=== PATIENT | female | born 1975 | race Caucasian/White ===

== ENCOUNTER → 2018-10-13 14:15 | Outpatient (CLI) | payer OTHER, SELFPAY ==
[2018-10-20 17:56] LABS: HPV Reflexed? NOT INDICATED
== END ==
PROVIDERS: Visit Provider Obstetrics & Gynecology
DX: Z12.4 Encounter for screening for malignant neoplasm of cervix (principal)
CPT/HCPCS: 88175; G0145

== ENCOUNTER → 2018-11-05 15:27 | Outpatient (CLI) | payer OTHER, SELFPAY ==
[2015-12-21 04:12] VITALS: BMI 57.5
--- NOTE | 2018-11-05 15:30 | BI_ITS ---
MAMMOGRAPHY - BILATERAL DIAGNOSTIC REASON FOR EXAM: Female, 43 years old. 3 month history of left breast lump. PERTINENT HISTORY: Sisters with breast cancer. Mother with breast cancer. TECHNIQUE: Digital bilateral breast no (3D mammographic acquisition) in the CC and MLO projections. 2-D mediolateral oblique (MLO) and craniocaudad (CC) views of both breasts were obtained. CAD: Full Field Digital Mammography with Computer Added Detection was performed. COMPARISON: Comparison is made with prior study dated April 09, 2013. FINDINGS: Breast Composition: The breasts are heterogeneously dense, which may obscure small masses. There are no dominant masses or suspicious calcifications. No other significant abnormalities are identified. There has been no significant change since the prior study. BI/DIAG MAMM W/CAD, BILAT IMPRESSION: Stable bilateral diagnostic mammogram. With the patient's history of a palpable abnormality in the left breast, correlation with ultrasound is recommended. ASSESSMENT CATEGORY: BIRADS Category 0: Incomplete. Need additional imaging evaluation. A letter regarding these results will be sent to the patient by the facility within 30 days. Approximately 10% of breast cancers are not detected by mammography. A normal mammogram should not delay biopsy of a clinically suspicious abnormality. Electronically Signed: Tone Rajput, at 8:06 EDT , Service support ,
== END ==
PROVIDERS: Referring Provider Obstetrics & Gynecology; Visit Provider Obstetrics & Gynecology
DX: N63.20 Unspecified lump in the left breast, unspecified quadrant (principal)
CPT/HCPCS: 77062; 77066; G0279

== ENCOUNTER → 2018-11-06 14:41 | Outpatient (CLI) | payer OTHER, SELFPAY ==
--- NOTE | 2018-11-06 14:53 | US_ITS ---
STUDY: ULTRASOUND BREAST - LEFT REASON FOR EXAM: Female, 43 years old. Palpable lump left breast. TECHNIQUE: Axial and longitudinal images of the LEFT breast were performed with a high resolution ultrasound transducer. COMPARISON: Comparison is made with prior mammogram dated November 05, 2018. FINDINGS: LEFT Breast: The upper inner quadrant of the left breast was examined by ultrasound. There is homogeneous fibroglandular tissue. No sonographic abnormality is seen. US/Breast Complete Unilateral IMPRESSION: No sonographic abnormality is seen. ASSESSMENT CATEGORY: BIRADS Category 1: Negative. A letter regarding these results will be sent to the patient by the facility within 30 days. Electronically Signed: Tone Rajput, at 8:28 EDT , Service support ,
== END ==
LOC: OPUS 14:52
PROVIDERS: Referring Provider Obstetrics & Gynecology; Visit Provider Obstetrics & Gynecology
DX: N63.20 Unspecified lump in the left breast, unspecified quadrant (principal)
CPT/HCPCS: 76641

== ENCOUNTER → 2020-04-19 09:30 | Outpatient (CLI) | payer OTHER, SELFPAY ==
[2020-01-19 14:42] VITALS: BMI 57.5
== END ==
PROVIDERS: PCP Family Medicine; Referring Provider Nurse Practitioner Primary Care; Visit Provider Nurse Practitioner Primary Care
DX: U07.1 COVID-19 (principal)
CPT/HCPCS: 87635; C9803; U0003